=== PATIENT | male | born 1980 | race Caucasian/White ===

== ENCOUNTER 2024-01-19 13:40 | Outpatient (CLI) | payer OTHER | END 2024-01-19 23:59 | disposition home or self-care (01) | LOC: RAD 13:40 | PROVIDERS: ATTEND Pediatrics Sports Medicine | DX: M94.261 Chondromalacia, right knee (principal); M25.461 Effusion, right knee; M25.761 Osteophyte, right knee; M25.561 Pain in right knee | CPT/HCPCS: 73721 ==